=== PATIENT | female | born 1980 | race African-American/Black ===

== ENCOUNTER 2016-11-07 07:06 | Emergency (ER) | payer OTHER ==
[2016-11-07 07:24] VITALS: BP 141/56; PULSE 78; TEMP 98.1; BMI 39.1
--- NOTE | 2016-11-07 07:33 | PDOC ---
History of Present Illness - General Chief Complaint: Pain Stated Complaint: KNEE INJURY (WORK) Time Seen by Provider: 11/07/16 07:28 - History of Present Illness Initial Comments: 35 year old female with no significant PMH presenting with right knee pain for the past two weeks. She suffered a blow from a vacuum rug cleaner hand over her patella on 10/22/16 with a visit to urgent care and a negative knee x ray and a cortisone shot that created some relief. Since then she has suffered another knee injury which occurred when a child at her place of work kicked her on the patella. Since then she has had further trouble with ambulation and some tenderness behind her knee and over he patella. Overall, she is able to bear weight with some pain to the joint but able to ambulate with a slight limp. Denies fevers, chills, nausea, vomiting, chest pain, sensory deficits, or any other symptoms. 11/07/16 08:06 Past History - Past Medical History Allergies/Adverse Reactions: Allergies Allergy/AdvReac Type Severity Reaction Status Date / Time No Known Allergies Allergy Verified 11/07/16 07:24 Home Medications: Ambulatory Orders NK [No Known Home Medication] 11/14/14 Other medical history: denies - Psycho/Social/Smoking Cessation Hx Anxiety: No Suicidal Ideation: No Smoking History: Never smoked Have you smoked in the past 12 months: No Information on smoking cessation initiated: No Hx Alcohol Use: No Drug/Substance Use Hx: No Substance Use Type: None Review of Systems - Review of Systems Constitutional: No: Chills, Diaphoresis, Fever HEENTM: No: Eye Pain, Blurred Vision, Recent change in vision Respiratory: No: Cough, Shortness of Breath, SOB at Rest, Wheezing Cardiac (ROS): No: Chest Pain, Edema, Lightheadedness ABD/GI: No: Abdominal Distended, Constipated, Diarrhea, Nausea, Vomiting : No: Burning, Frequency Musculoskeletal: Yes: Joint Pain. No: Back Pain, Muscle Weakness Integumentary: No: Bruising, Lesions Neurological: No: Numbness, Paresthesia, Tingling *Physical Exam - Vital Signs Last Vital Signs Temp Pulse Resp BP Pulse Ox 98.1 F 78 18 141/56 100 11/07/16 07:10 11/07/16 07:10 11/07/16 07:10 11/07/16 07:10 11/07/16 07:10 - Physical Exam General Appearance: Yes: Nourished, Appropriately Dressed. No: Apparent Distress HEENT: positive: EOMI, JUICE, Normal Voice Neck: positive: Trachea midline, Normal Thyroid, Supple. negative: Tender, Rigid Respiratory/Chest: positive: Lungs Clear, Normal Breath Sounds. negative: Chest Tender, Respiratory Distress, Accessory Muscle Use Cardiovascular: positive: Regular Rhythm, S1, S2, Tachycardia. negative: Edema , JVD, Murmur Gastrointestinal/Abdominal: positive: Normal Bowel Sounds, Flat, Soft. negative : Tender, Organomegaly Musculoskeletal: positive: Decreased Range of Motion (decreased ROM atr right knee 5 degrees to 75 degrees), Other (Tenderness to palpation over medial aspect of right knee without swelling or efussion noted. Positive Ludwin's sign with valgus strain) Extremity: positive: Normal Capillary Refill, Normal Inspection, Tender (Per above). negative: Normal Range of Motion (Per above) Integumentary: positive: Normal Color, Dry, Warm Neurologic: positive: Fully Oriented, Alert, Normal Mood/Affect, Motor Strength 5/5 Medical Decision Making - Medical Decision Making 35 year olf healthy female with recent knee trauma. Patient able to ambulate with slight limp. Physical exam concerning for some medial soft tissue injury. Patient will need an MRI but will shoot a 3 view film set of the right knee to rule out bony pathology given new injury although suspicion very low for this at the moment. 11/07/16 08:28 11/07/16 10:07 X Ray of the knee negative for any bony pathology. Will send home with instructions on how to obtain an MRI as she needs soft tissue imaging. 11/07/16 10:19 *DC/Admit/Observation/Transfer Diagnosis at time of Disposition: Soft tissue lesion of knee region - Discharge Dispostion Disposition: HOME Condition at time of disposition: Improved Admit: No - Referrals Referrals: Mikal Lewis MD [Primary Care Provider] - Cecil Carter MD [Staff Physician] - - Patient Instructions Printed Discharge Instructions: DI for Knee Sprain Additional Instructions: Call [facility] and ask for MRI scheduling - [phone] You were seen for a knee pain that we believe is an injury of your soft tissues (ligaments, muscles, or cartilage). We did an X ray and did not see any breaks in your bones. We believe that you need an MRI of your knee and have the MRI scheduling number above. Please follow up with your orthopedic surgeon. Either the orthopaedic surgeon included on this document or the surgeons on the separate list. Please return to the ED if you have further swelling of the joint that becomes painful, redness of the joint, experience fevers, experience chills, or have any other new issues. - Attestations Physician Attestion: 11/07/16 10:40 I, Dr. Andree Ohara, attest that this document has been prepared under my direction and personally reviewed by me in its entirety. I further attest, that it accurately reflects all work, treatment, procedures and medical decision -making performed by me.
--- NOTE | 2016-11-07 07:34 | PDOC ---
Attending Attestation - Resident Resident Name: Andree Ohara - ED Attending Attestation I have performed the following: I have examined & evaluated the patient, The case was reviewed & discussed with the resident, I agree w/resident's findings & plan, Exceptions are as noted - HPI HPI: 35 yo F presents with R knee pain. 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 She has been limping ever since, having severe pain. She notes some swelling. No redness, fever, rash. - Physicial Exam PE: GENERAL: Awake, alert, and fully oriented, in no acute distress HEAD: No signs of trauma EYES: PERRLA, EOMI, sclera anicteric, conjunctiva clear ENT: Auricles normal inspection, hearing grossly normal, nares patent, oropharynx clear without exudates. Moist mucosa NECK: Normal ROM, supple, no lymphadenopathy, JVD, or masses LUNGS: Breath sounds equal, clear to auscultation bilaterally. No wheezes, and no crackles HEART: Regular rate and rhythm, normal S1 and S2, no murmurs, rubs or gallops ABDOMEN: Soft, nontender, normoactive bowel sounds. No guarding, no rebound. No masses EXTREMITIES: R knee with tenderness to anterior tibia. +Ludwin's test. +Trace effusion. Slight laxity of MCL and LCL. Remainder of extremities with normal range of motion, no edema. No clubbing or cyanosis. No cords, erythema, or tenderness NEUROLOGICAL: Cranial nerves II through XII grossly intact. Normal speech. Antalgic gait. SKIN: Warm, Dry, normal turgor, no rashes or lesions noted. - Medical Decision Making Pt with knee pain after hyperextension injury. Suspect meniscal injury. NSAIDs, immobilizer, crutches.
[2016-11-07] MEDS ORDERED: IBUPROFEN 600 MG TABLET (FP) PO ONE ×2 (08:52→08:56)
== END 2016-11-07 11:28 | disposition home or self-care (01) ==
LOC: JER 07:06
DX: S89.81XA Other specified injuries of right lower leg, initial encounter (principal); Y00.XXXA Assault by blunt object, initial encounter; Y93.F9 Activity, other caregiving; Y92.118 Other place in children's home and orphanage as the place of occurrence of the external cause; Y99.0 Civilian activity done for income or pay
CPT/HCPCS: 73562-TC-RT; 84703; 99282-25

== ENCOUNTER 2018-11-23 18:13 | Emergency (ER) | payer OTHER | END 2018-11-24 00:18 | disposition home or self-care (01) | LOC: FER 18:13 ==

== ENCOUNTER 2018-11-25 16:36 | Emergency (ER) | payer OTHER ==
--- NOTE | 2018-11-25 16:40 | PDOC ---
Rapid Medical Evaluation Time Seen by Provider: 11/25/18 16:39 Medical Evaluation: Allergies Allergy/AdvReac Type Severity Reaction Status Date / Time No Known Allergies Allergy Verified 11/23/18 18:13 11/25/18 16:39 CC: called to return for abnormal CT results PE: ventral hernia present. +BS in hernia. Orders: nothing Patient will proceed to ED for continued evaluation. 11/25/18 16:41 Discharge Disposition - Diagnosis Epigastric hernia - Referrals - Patient Instructions - Post Discharge Activity
[2018-11-25 16:43] VITALS: BP 124/69; PULSE 89; TEMP 98.1; BMI 38.7
--- NOTE | 2018-11-25 18:31 | PDOC ---
History of Present Illness - General Chief Complaint: Pain, Acute Stated Complaint: ABD PAIN Time Seen by Provider: 11/25/18 16:39 History Source: Patient, Old Records Exam Limitations: No Limitations - History of Present Illness Initial Comments: HPI: 38 y/o female presenting to [facility] ER on callback request from [employer] with concern for CT findings from [email or web address] 23 Nov 2018. Pt was evaluated at ED for epigastric pain and stomach bulge in setting of gastric sleeve placement on [address] Curtis. Symptoms have occurred intermittently over the past several weeks. CT scan at ER revealed fat-containing supraumbilical ventral hernia with mild stranding of surrounding subcutaneous fat. Radiologist unable to rule out mesenteric incarceration based on images. Dr. Curtis was made aware of findings during last visit. On arrival, the pt reports her pain has improved since discharge. Now a dull achy pain made worse with laying on her stomach. Able to tolerate PO without difficulty. No diarrhea or change in stool color. No fevers or chills. Medical Hx: - S/p Gastric Sleeve (29 Nov 2017) by Dr. Curtis Review of Systems: In addition to that documented in the HPI above, the additional ROS was obtained : Constitutional: Denies fevers or chills ENMT: Denies sore throat CV: Denies chest pain Resp: Denies SOB GI: Denies vomiting or diarrhea : Denies dysuria, hematuria, or urinary frequency Physical Examination: Constitutional: Well-developed, well-nourished adult female in no acute distress or obvious discomfort. Found sitting upright on hospital [employer] table. Alert and oriented x4. Answered all questions appropriately and completely. Speech was non-labored, non-pressured. Head: Normocephalic. No obvious external signs of trauma. Cardiovascular / Chest: Regular rate and regular rhythm. No murmur, rubs, clicks , or gallops. Peripheral pulses: radial pulses full. Respiratory: Breathing unlabored. Equal chest rise and fall. Clear to auscultation bilaterally. No stridor, no wheezing, no rhonchi. Gastrointestinal: abdomen is tender in epigastric area with grimace but no rebound or guarding. Midline hernia over epigastric area. Globally, abdomen is soft and non-distended. No pulsatile masses. No overlying skin lesions or obvious signs of trauma. Pt able to transition from laying to sitting position without assistance. Neuro: Alert and oriented. Moving all four extremities spontaneously. Gait normal. Skin: Warm, dry, and intact. : No R or L CVA tenderness. Psych: Affect: appropriate. Mood: normal. MDM: *Reviewed vital signs, nursing notes, and prior visit documentation (if available). 38 y/o female presenting for eval after [employer] call back for CT scan findings. Symptoms have improved since last ED visit. Tolerating PO. No change in bowel habits. Afebrile. Vitals unremarkable for hypotension or tachycardia. Physical exam as described above. CBC unremarkable for leukocytosis. Lactic acid not elevated. Suspect likely fat containing hernia. Low suspicion for mesenteric incarceration. Telephone discussion with Dr. Curtis. Verbally appraised of the pts HPI, ED course, and current plan of management. Also discussed the results of CT scan. Acknowledged he was already aware of the findings and would like the pt to f/u in clinic. Discussed imaging and laboratory results with pt. Answered all questions. Provided return precautions. Pt expressed verbal understanding and agreement with plan to discharge home with outpatient follow up. Johnny Ashby M.D., PGY2 Emergency Medicine Resident Past History - Past Medical History Allergies/Adverse Reactions: Allergies Allergy/AdvReac Type Severity Reaction Status Date / Time No Known Allergies Allergy Verified 11/25/18 16:43 Home Medications: Ambulatory Orders Ondansetron [Zofran *Odt*] 4 mg SL BID PRN #10 od.tablet 11/24/18 Oxycodone HCl/Acetaminophen [Percocet 5-325 mg Tablet] 1 tab PO Q6H PRN #12 tablet MDD 4 tabs 11/24/18 COPD: No - Surgical History Abdominal Surgery: Yes (GASTRIC SLEEVE) - Suicide/Smoking/Psychosocial Hx Smoking History: Never smoked Have you smoked in the past 12 months: No Hx Alcohol Use: Yes Drug/Substance Use Hx: No Substance Use Type: None *Physical Exam - Vital Signs Last Vital Signs Temp Pulse Resp BP Pulse Ox 98.1 F 89 16 124/69 97 11/25/18 16:40 11/25/18 16:40 11/25/18 16:40 11/25/18 16:40 11/25/18 16:40 ED Treatment Course - LABORATORY CBC & Chemistry Diagram: 11/25/18 18:07 *DC/Admit/Observation/Transfer Diagnosis at time of Disposition: Epigastric hernia - Discharge Dispostion Disposition: HOME Condition at time of disposition: Good Decision to Admit order: No - Referrals Referrals: Mikal Lewis RES [Primary Care Provider] - Malik Curtis MD [Staff Physician] - Call tomorrow - Patient Instructions Printed Discharge Instructions: DI for Ventral Hernia Additional Instructions: You were seen today for examination based on your CT scan results from your [facility] ED visit two days ago. Your repeat blood work was normal today. I called and discussed the case with your surgeon, who was already aware of the CT findings. You can take over the counter Tylenol or Advil as needed for pain. Take as directed on the package insert. Do not exceed the recommended dosage. Follow up with your surgeon, Dr. Curtis. You will need to call to make an appointment tomorrow morning. The number is included in this packet. A copy of todays results are attached to this packet. Take it to the appointment so your doctor can review them. Go to the nearest emergency department if your condition worsens or you feel like you need additional emergency evaluation. Print Language: KYRGYZ - Post Discharge Activity Forms/Work/School Notes: Back to Work
[2018-11-25 18:41] LABS: BASO % 0.9 % (0-2.0); EOS % 3.5 % (0-4.5); HEMATOCRIT 36.5 % (32.4-45.2); HEMOGLOBIN 12.4 GM/dL (10.7-15.3); LYMPH % 33.7 % (8-40); MCH 35.8 pg (25.7-33.7); MCHC 34.1 g/dl (32.0-36.0); MEAN CELL VOLUME 104.7 fl (80-96); MEAN PLT VOLUME 7.6 fl (7.5-11.1); MONO % 7.1 % (3.8-10.2); NEUT % 54.8 % (42.8-82.8); PLATELET COUNT 247 K/MM3 (134-434); RBC 3.48 M/mm3 (3.60-5.2); RDW 13.4 % (11.6-15.6); WHITE BLOOD COUNT 5.4 K/mm3 (4.0-10.0)
--- NOTE | 2018-11-25 19:42 | PDOC ---
Documentation entered by Yuli Patterson SCRIBE, acting as scribe for Yasmine Bryson DO. Yasmine Bryson DO: This documentation has been prepared by the Leonardo garvin Adrianna, SCRIBE, under my direction and personally reviewed by me in its entirety. I confirm that the documentation accurately reflects all work, treatment, procedures, and medical decision making performed by me. Attending Attestation - Resident Resident Name: AshbyJohnny - ED Attending Attestation I have performed the following: I have examined & evaluated the patient, The case was reviewed & discussed with the resident, I agree w/resident's findings & plan - HPI HPI: The patient is a 38 year old female, with a significant PMH of gastric sleeve ( done one year ago), who presents to the ED for evaluation of abdominal pain for 3 days. Patient was seen in the ED 2 days ago for abdominal pain, and was called back for abnormal CT with possible mesenteric containing hernia. Allergies:NKA, NKDA Surgical History: Gastric sleeve Social History: Denies EtOH, tobacco, or illicit drug use PCP: Dr. Lewis - Physicial Exam PE: Agree with resident exam. - Medical Decision Making 38 year old female called back for abnormal CT findings. CT result previously reviewed with patient's surgeon, who was again contacted edward and will follow up with patient in office. Patient has mild persistent pain, plan for repeat CBC and lactic acid level. If normal, discharge home. If abnormal, contact surgery for final dispo.
== END 2018-11-25 19:20 | disposition home or self-care (01) ==
LOC: JER 16:36
DX: K43.9 Ventral hernia without obstruction or gangrene (principal); Z98.84 Bariatric surgery status
CPT/HCPCS: 36415; 83605; 85025; 99282-25

== ENCOUNTER 2018-12-03 08:16 | Day surgery (SDC) | payer OTHER ==
[2018-12-03] MEDS ORDERED: SODIUM CHLORIDE 1,000 ML IV ONE (08:19)
[2018-12-03] MEDS ORDERED: ONDANSETRON 4 MG/2 ML VIAL IVPB ONE (08:19)
[2018-12-03 08:32] VITALS: BMI 39.0
[2018-12-03] MEDS ORDERED: morphine CARPU-JECT 4 MG/1 ML DISP.SYRIN IVPUSH ONE (08:44)
[2018-12-03] MEDS ORDERED: morphine SULFATE 4 MG/ML VIAL ONE (08:47)
[2018-12-03] MEDS ORDERED: ONDANSETRON 4 MG/2 ML VIAL ONE ×2 (08:47→14:52)
--- NOTE | 2018-12-03 09:00 | PDOC ---
History of Present Illness - General Chief Complaint: Pain Stated Complaint: ABD PAIN Time Seen by Provider: 12/03/18 08:19 History Source: Patient, Old Records Exam Limitations: No Limitations - History of Present Illness Initial Comments: 12/03/18 08:51 38y/o healthy female with psh of gastric sleeve 11/2017 presents with increased acute on subacute abdominal pain. Pt sxs began about one month ago after she forcefully sneezed and felt a sudden hernia like swelling in her epigastric region. Since then, has had mild intermittent discomfort without complicating sxs. On 11/23, sneezed again and had sudden increase in her pain/swelling - seen at [facility] that day where labs were normal but CT showed ventral/periumbilical mesentery containing hernia. Case was discussed with her surgeon, Dr. Curtis, and pt d/c to outpt f/u. Returned briefly to [facility] 11/25 after radiology callback but no change in plan. Since then, patient has had persistent discomfort to the supraumbilical/ epigastric region, constant but mild. She had seen Dr. Curtis on 11/26, and plan was to the likely require elective operative repair of ventral hernia defect. Patient was in this state until last night, when she felt a sudden sharp increase in her epigastric pain with subsequent nausea/vomiting of previous meal and then yellow, nonbloody liquid. The pain persisted at this high level for a couple of hours and then resolved back to mild, but has been persistent since then. Notably, since then, patient has had no appetite and no oral intake , and has noticed decreased flatulence and no bowel movements. No fevers or chills, no urinary complaints, no cardiopulmonary complaints, no known history of obstruction. Patient was previously prescribed Percocet and Zofran, has used it sparingly, with minimal to no relief. Past History - Past Medical History Allergies/Adverse Reactions: Allergies Allergy/AdvReac Type Severity Reaction Status Date / Time ethinyl estradiol Allergy Mild Difficulty Verified 12/03/18 12:57 [From Seasonale ()] Breathing levonorgestrel Allergy Mild Difficulty Verified 12/03/18 12:57 [From Seasonale (91)] Breathing Home Medications: Ambulatory Orders Ondansetron [Zofran *Odt*] 4 mg SL BID PRN #10 od.tablet 11/24/18 Oxycodone HCl/Acetaminophen [Percocet 5-325 mg Tablet] 1 tab PO Q6H PRN #12 tablet MDD 4 tabs 11/24/18 COPD: No - Surgical History Abdominal Surgery: Yes (GASTRIC SLEEVE) - Suicide/Smoking/Psychosocial Hx Smoking History: Never smoked Have you smoked in the past 12 months: No Information on smoking cessation initiated: No Hx Alcohol Use: Yes ([employer]) Drug/Substance Use Hx: No Substance Use Type: None Review of Systems - Review of Systems Constitutional: No: Chills, Fever Respiratory: No: Cough, Shortness of Breath Cardiac (ROS): No: Chest Pain ABD/GI: Yes: See HPI : No: Symptoms Reported Musculoskeletal: Yes: Back Pain (low back pain for about 1 week without motor/ sensory deficit). No: Muscle Weakness Neurological: No: Paresthesia, Tingling, Weakness, Ataxia All Other Systems: Reviewed and Negative *Physical Exam - Vital Signs Last Vital Signs Temp Pulse Resp BP Pulse Ox 98.9 F 79 20 120/81 99 12/03/18 08:16 12/03/18 08:16 12/03/18 08:16 12/03/18 08:16 12/03/18 08:16 - Physical Exam Comments: 12/03/18 09:00 Vitals as noted, afebrile GENERAL: The patient is awake, alert, and fully oriented, in no acute distress. Obese, lying comfortably in stretcher. HEAD: Normal with no signs of trauma. EYES: PERRL, EOMI, sclera anicteric, conjunctiva clear with no pallor. ENT: oropharynx clear without exudates. Slightly dry mucous membranes. NECK: Normal range of motion, supple without lymphadenopathy, JVD, or masses. LUNGS: Breath sounds equal, clear to auscultation bilaterally. No wheeze/ crackles. HEART: Regular rate and rhythm, normal S1 and S2 without murmur or rub. ABDOMEN: Soft/nondistended. BS wnl. Palpable tender hernia in supraumbilical region above incisional lap site, hernia reduced with constant gentle pressure. Slight guarding in the region of the hernia, no rebound. No palpable masses. No hepatosplenomegaly. EXTREMITIES: Normal range of motion, no edema. 2+ distal pulses. No cords, erythema, or tenderness. No midline spine ttp. NEUROLOGICAL: Cranial nerves II through XII grossly intact. Normal speech, normal gait, 5/5 flex/extend of b/l hips/knees/ankles/toes. PSYCH: Normal mood, normal affect. SKIN: Warm, Dry, no rashes or lesions noted. Heart Score/ECG Review #1 ECG reviewed & interpreted by me at: 08:50 General ECG Interpretation: Sinus Rhythm, Normal Rate (65), Normal Intervals ( qtc 407), No acute ischemic changes ED Treatment Course - LABORATORY CBC & Chemistry Diagram: 12/03/18 08:58 12/03/18 08:58 - RADIOLOGY Radiology Studies Ordered: Category Date Time Status ABDOMEN & PELVIS CT WITH CONTR [CT] Stat CT Scan 12/03/18 08:44 Ordered Medical Decision Making - Medical Decision Making 12/03/18 09:19 38-year-old female with history of laparoscopic gastric sleeve one year ago and recently diagnosed ventral hernia presents now with worsening pain and findings more concerning for incarcerated hernia with possible partial small bowel obstruction. Vital signs are stable, not septic appearing. Labs, urinalysis EKG IV fluid rehydration, antiemetics, pain control CT of the abdomen and pelvis to evaluate progression of hernia and status of bowel Will discuss case with patient's surgeon, Dr. Curtis Reassess 12/03/18 09:59 labs normal: no leukocytosis, BUN/Cr normal, UA clear. Feels better after meds/ fluids. Call placed to Dr. Curtis, awaiting callback. Pending CTAP. 12/03/18 11:[address] Curtis and Dr. Parish Lewis. Given obstructive sxs and ongoing hernia complaints, will admit for OR reduction and hernia repair. Admission to Dr. Curtis, Dr. Lewis will follow. Pt aware, awaiting official CT read but pt more comfortable at this time. 12/03/18 13:31 CTAP with persistent mesenteric hernia, no obstruction. Pt admitted, Dr. Curtis here to evaluate. Plan for OR repair. *DC/Admit/Observation/Transfer Diagnosis at time of Disposition: Epigastric hernia, Incarcerated hernia - Discharge Dispostion Condition at time of disposition: Fair - Referrals - Patient Instructions - Post Discharge Activity
[2018-12-03 09:27] LABS: BASO % 0.5 % (0-2.0); EOS % 5.7 % (0-4.5); HEMATOCRIT 36.4 % (32.4-45.2); HEMOGLOBIN 12.3 GM/dl (10.7-15.3); LYMPH % 32.2 % (8-40); MCH 35.5 pg (25.7-33.7); MCHC 33.8 g/dl (32.0-36.0); MEAN CELL VOLUME 105.1 fl (80-96); MEAN PLT VOLUME 7.8 fl (7.5-11.1); MONO % 9.4 % (3.8-10.2); NEUT % 52.2 % (42.8-82.8); PLATELET COUNT 235 K/MM3 (134-434); RBC 3.47 M/mm3 (3.60-5.2); WHITE BLOOD COUNT 4.3 K/mm3 (4.0-10.8)
[2018-12-03 09:35] LABS: ALBUMIN 3.3 g/dl (3.4-5.0); BILIRUBIN,TOTAL 0.6 mg/dl (0.2-1); CALCIUM 8.6 mg/dl (8.5-10); CREATININE 0.8 mg/dl (0.55-1.3); MAGNESIUM 1.7 mg/dL (1.8-2.4); POTASSIUM 3.7 mmol/L (3.5-5.1); TOT PROT 6.6 g/dl (6.4-8.2)
[2018-12-03 09:36] LABS: INR 1.14 (0.82-1.09); PROTHROMBIN TIME (PATIENT) 12.7 SEC (10.2-13.0)
[2018-12-03 09:50] LABS: EPITHELIAL CELLS MODERATE /hpf
[2018-12-03] MEDS ORDERED: LIDO 2%/EPI 1:200000 PRESRVFRE (20 ML SDVIAL) ONE (10:42)
[2018-12-03] MEDS ORDERED: DIPHTH,PERTUSS(ACELL),TET 0.5 ML DISP.SYRIN IM ONE (10:42)
[2018-12-03] MEDS ORDERED: SODIUM CHLORIDE 1,000 ML IV STA (11:56)
[2018-12-03] MEDS ORDERED: fentaNYL CITRATE 250 MCG/5 ML VIAL ONE (13:50)
[2018-12-03] MEDS ORDERED: PROPOFOL 20 ML ONE ×2 (13:50→14:58)
[2018-12-03] MEDS ORDERED: SUCCINYLCHOLINE CHLORIDE 200 MG/10 ML SYRINGE ONE (13:50)
[2018-12-03] MEDS ORDERED: ceFAZolin SODIUM 1 GM VIAL ONE (14:09)
[2018-12-03] MEDS ORDERED: ROCURONIUM BROMIDE 50 MG/5 ML VIAL ONE (14:16)
--- NOTE | 2018-12-03 14:40 | HP ---
DATE OF ADMISSION: 12/03/2018 CHIEF COMPLAINT: Abdominal pain. HISTORY OF PRESENT ILLNESS: This is a 38-year-old woman with a history of gastric sleeve approximately 1 year ago. Patient started having pain in the supraumbilical area by one of the trocar sites approximately 3 weeks ago. She came to the emergency room approximately 10 days ago, where a CT scan showed a small hernia in the midline in the supraumbilical position, containing some mesenteric fat. The patient was sent home on pain medicine and she has had some difficulty at home, mostly with intermittent abdominal pain. She states she had had recently an episode of vomiting and the bowel movements have changed to where they are very minimal. The patient comes to the emergency room now complaining of significant pain from the apparent hernia. Past medical history is noncontributory. She takes no medications. The patient has no allergies. REVIEW OF SYMPTOMS: Respiratory: Within normal limits. Cardiovascular: Within normal limits. Gastrointestinal: Midline abdominal pain just above the umbilicus. Occasional vomiting noted. Extremities: Within normal limits. Musculoskeletal: Within normal limits. PHYSICAL EXAMINATION: General: A 38-year-old woman, awake, alert, in mild to moderate distress secondary to abdominal pain above the umbilicus. HEENT: No masses palpated. Lungs: Clear bilaterally. Heart: Regular sinus rhythm. Abdomen: Positive for obesity, soft, tender on palpation above the umbilicus approximately 3 to 4 cm. Questionable hernia content palpated. No signs of guarding and no rebound tenderness noted. Extremities: No swelling noted. IMPRESSION: Supraumbilical ventral hernia. PLAN: OR for repair of ventral hernia. Dasia [id number]
[2018-12-03] MEDS ORDERED: DEXAMETHASONE SOD PHOSPHATE 4 MG/1 ML VIAL ONE (14:52)
[2018-12-03] MEDS ORDERED: NEOSTIGMINE METHYLSULFATE 0.5 MG/ML - 10 ML MDV ONE (14:55)
[2018-12-03] MEDS ORDERED: BUPIVACAINE HCL/PF 2.5 MG/ML - 30 ML VIAL IJ ONE (14:57)
[2018-12-03] MEDS ORDERED: BUPIVACAINE HCL/PF 0.25% (2.5MG/ML) 10 ML VIAL IJ ONE (15:05)
--- NOTE | 2018-12-03 15:13 | EKG ---
Test Reason : Blood Pressure : / mmHG Vent. Rate : 065 BPM Atrial Rate : 065 BPM P-R Int : 164 ms QRS Dur : 080 ms QT Int : 392 ms P-R-T Axes : 039 046 035 degrees QTc Int : 407 ms NORMAL SINUS RHYTHM NORMAL ECG WHEN COMPARED WITH ECG OF 18-OCT-2017 12:57, NO SIGNIFICANT CHANGE WAS FOUND Confirmed by Allen Calderón ([id number]) on 12/03/2018 3:13:40 PM Referred By: VIANNEY ARNETT Confirmed By:Allen Calderón
[2018-12-03] MEDS ORDERED: ACETAMINOPHEN 325 MG TABLET (FP) PO PRN (15:21)
[2018-12-03] MEDS ORDERED: oxyCODONE HCL 5 MG TABLET PO PRN (15:21)
--- NOTE | 2018-12-03 15:28 | OP ---
Operative Note - Note: Operative Date: 12/03/18 Pre-Operative Diagnosis: Incarcerated Ventral Hernia. Abdominal Pain Operation: Laparoscopic Ventral Hernia Repair. Partial Omentectomy Findings: Approximately 4 cm hernia found in midline 5 cm above umbilicus from previous trocar site. Omentum amputated and removed with hernia sac. Post-Operative Diagnosis: Same as Pre-op Surgeon: Malik Curtis Executive Pastry Chef: Shila Coker Anesthesia: General Specimens Removed: Omentum and hernia sac Estimated Blood Loss (mls): 30 Operative Report Dictated: Yes
[2018-12-03] MEDS: ONDANSETRON 4 MG/2 ML VIAL IVPUSH PRN (15:32)
[2018-12-03] MEDS ORDERED: KETOROLAC TROMETHAMINE 30 MG/1 ML VIAL ONE (15:41)
[2018-12-03] MEDS ORDERED: morphine CARPU-JECT 2 MG/1 ML DISP.SYRIN IVPUSH PRN (15:42)
[2018-12-03] MEDS ORDERED: ONDANSETRON 4 MG/2 ML VIAL IVPUSH PRN (15:42)
--- NOTE | 2018-12-03 15:58 | SURG ---
Surgery Upsetting Machine Operator Note Upsetting Machine Operator: Shila Coker PA-C Date of Service: 12/03/18 Diagnosis: Incarcerated Ventral Hernia. Abdominal Pain Procedure: Incarcerated Ventral Hernia. Abdominal Pain I was present for the entirety of the operative procedure. For further detail, please refer to operative report. Visit type - Case Type Case Type: ED Admission - Emergency Emergency Visit: Yes Care time: The patient presented to the Emergency Department on the above date and was hospitalized for further evaluation of their emergent condition. - New patient This patient is new to me today: Yes Date on this admission: 12/03/18
[2018-12-03] MEDS ORDERED: HYDROmorphone HCL 0.5 MG/0.5 ML SYRINGE ONE (16:33)
[2018-12-03] MEDS ORDERED: ACETAMINOPHEN 325 MG TABLET (FP) ONE (16:46)
[2018-12-03] MEDS ORDERED: oxyCODONE HCL 5 MG TABLET ONE (16:46)
[2018-12-03] MEDS ORDERED: HYDROmorphone HCL CARPU-JECT 1 MG/1 ML DISP.SYRIN IVPB PRN (16:47)
[2018-12-03] MEDS ORDERED: ACETAMINOPHEN 325 MG TABLET (FP) PO ONE (16:55)
[2018-12-03] MEDS: SODIUM CHLORIDE 1,000 ML IV SCH (17:00)
--- NOTE | 2018-12-03 19:51 | OP ---
DATE OF OPERATION: 12/03/2018 PREOPERATIVE DIAGNOSES: 1. Incarcerated abdominal ventral wall hernia. 2. Abdominal pain. POSTOPERATIVE DIAGNOSES: 1. Incarcerated abdominal ventral wall hernia. 2. Abdominal pain. 3. Incarcerated omentum. PROCEDURE PERFORMED: 1. Laparoscopic repair of incarcerated ventral hernia. 2. Partial omentectomy. 3. Diagnostic laparoscopy. OPERATING SURGEON: Marysol Samuel MD WELL TESTING OPERATOR: CELESTINO Rolle ANESTHESIA: General. OPERATIVE PROCEDURE: The patient was brought in to the operating room, placed on the OR table in the supine position. All precautions were taken initially including padding for the back and Venodyne boots were placed on both lower extremities. At that point the abdomen was prepped and draped in the usual manner. A Veress needle was placed in the left upper quadrant near the patient's previous left upper quadrant incision, and a pneumoperitoneum was then established. Using the [employer], the camera was used through a number 5 trocar placed directly under vision into the left upper quadrant. The camera was then placed in the abdominal cavity, and under direct vision, a number 5 bladeless trocar was placed more laterally and slightly superior in the patient's previous trocar site. Using the more lateral one for camera site, attention was directed to the abdomen. There was an incarcerated hernia, however, during the anesthesia and as the patient relaxed, it was able to be reduced back into the abdominal cavity prior to the laparoscopy being placed. There were signs that part of the falciform ligament was incarcerated into the ventral wall hernia in the midline. Because 2 working ports were needed, a number 5 bladeless trocar was placed just to the left of the umbilicus and slightly below it. Using the 2 more medial trocars as a working port, the electrocautery was used to dissect the falciform ligament off of the hernia sac, and this continued until the full hernia, which was about 2 to 2.5 cm around and circular, was in full view. At this point, into the hernia sac, the laparoscopic instruments were placed and used to reduce the fat contents from the hernia sac that were there. Once these were pulled into the abdominal cavity, the electrocautery was used to dissect the fat and the adhesions off of the hernia sac, and then the hernia sac also was dissected until basically all subcutaneous contents were free in the hernia sac. The partial omentum that was dissected off was now removed from the number 5 trocar site and placed as a specimen to Pathology. Also the hernia sac was removed and sent to Pathology as a specimen. Attention was now directed to the repair of the hernia. Because it was only about 2 to 2.5 cm, it was decided that a primary repair could be performed. The Donato-Frederick endo-closure device was used to place 3 0 Vicryl sutures all in a row from superior to inferior and these were then placed through the hernia. When they were lifted up, you could see that the hernia was able to be reduced completely. At this point, prior to tying them off, because the number 5 trocar that was just to the left of the umbilicus was dissected wider in order to remove the omentum and the hernia sac, the Donato-Frederick was used to place 1 suture through the number 5 trocar and this was tied off successfully. At this point, the pneumoperitoneum was released down to a pressure of between 8 and 10. The 3 sutures closing the ventral hernia were now placed, and when it was completed, when they were tied, the hernia was now completely removed. Under direct vision now, all trocars were removed and pneumoperitoneum was released. All trocar sites then received 0.25% Marcaine. The midline site was closed with 2-0 Vicryl on the subcutaneous tissue, then all trocars were closed with 4-0 Biosyn in subcuticular fashion. Dressings were applied. Patient awoken from anesthesia and transferred out of the operating room to the recovery room in stable condition. Anesthesia in the case was general. Surgeon, Dr. Samuel. [employer], Shila Coker, physician's news assistant. Expected blood loss was 30 mL. Patient transferred to recovery room in stable condition. MARYSOL SAMUEL M.D. [id number]
[2018-12-03] MEDS: FAMOTIDINE 20 MG/50 ML IVPB 20 MG/50 ML MG IVPB SCH (21:23)
[2018-12-04] MEDS: FAMOTIDINE 20 MG/50 ML IVPB 20 MG/50 ML MG IVPB SCH ×2 (09:10→21:20)
[2018-12-04] MEDS: ONDANSETRON 4 MG/2 ML VIAL IVPUSH PRN ×2 (09:10→17:44)
[2018-12-04] MEDS: SODIUM CHLORIDE 1,000 ML IV SCH (17:30)
[2018-12-05] MEDS: FAMOTIDINE 20 MG/50 ML IVPB 20 MG/50 ML MG IVPB SCH (09:36)
--- NOTE | 2018-12-05 14:09 | PN ---
Progress Note (short form) - Note Progress Note: POD#2 Afebrile;VSS Pt doing better Less abdominal pain than previously Tolerating regular diet P/E-Abd- binder in place no leakage from trocar sites soft, mild tenderness over midline hernia repair on palpation Ext- no swelling, no edema P- D/C home Continue abdominal binder for 1 week F/U in office in 1 week
[2018-12-05 14:24] VITALS: BP 138/85; PULSE 78; TEMP 98.3
--- NOTE | 2018-12-12 15:09 | PATH ---
Surgical Pathology Report Patient Name: MARICRUZ MCGOVERN Med. Rec. #: [id number] /Age/Gender: 1980 (Age: 38) / F Account: [id number] Location: [facility] Taken: 12/03/2018 Received: 12/03/2018 Reported: 12/12/2018 Physicians: Malik Curtis M.D. Specimen(s) Received OMENTUM AND HERNIA SAC Clinical History Ventral hernia Final Diagnosis HERNIA SAC AND OMENTUM, REPAIR: HERNIA SAC AND OMENTUM. Electronically Signed Zelda Azar M.D. Gross Description Received in formalin, labeled "omentum and hernia sac" is a 6.5 x 4 x 1.0 cm portion of adipose tissue and fibromembranous tissue. Gre Tutor sections are submitted in one cassette. AE/12/06/2018 ebram/12/06/2018
== END 2018-12-05 17:35 | disposition home or self-care (01) ==
LOC: FER 08:16 → FASUSAT 11:15 → FM/S 11:15 → FASUSAT 11:52 → FM/S 12-04 18:02 → FASUSAT 12-05 17:35
PROVIDERS: ATTEND Surgery
PROC: 0DBU4ZZ Excision of Omentum, Percutaneous Endoscopic Approach (ICD-10-PCS; 2018-12-03)
PROC: 0WQF4ZZ Repair Abdominal Wall, Percutaneous Endoscopic Approach (ICD-10-PCS; principal; 2018-12-03 14:17)
DX: K43.6 Other and unspecified ventral hernia with obstruction, without gangrene (principal)
CPT/HCPCS: 36415; 74177-TC; 80053; 81003; 81015; 83690; 83735; 84703; 85025; 85610; 86850; 86900; 86901; 88302-TC; 93005; 94760; 99283-25; J7030

== ENCOUNTER 2019-06-11 08:54 | Emergency (ER) | payer OTHER ==
[2019-06-11 09:01] VITALS: BMI 38.9
[2019-06-11] MEDS ORDERED: SODIUM CHLORIDE 1,000 ML IV STA (09:41)
[2019-06-11] MEDS ORDERED: KETOROLAC TROMETHAMINE 15 MG/ML VIAL IVPUSH ONE ×2 (09:41→14:02)
[2019-06-11] MEDS ORDERED: ACETAMINOPHEN 500 MG TABLET (FP) PO ONE (09:42)
[2019-06-11] MEDS ORDERED: PSEUDOEPHEDRINE HCL 30 MG TABLET PO ONE (09:42)
[2019-06-11] MEDS ORDERED: KETOROLAC TROMETHAMINE 15 MG/ML VIAL ONE ×2 (10:00→15:17)
[2019-06-11] MEDS ORDERED: ACETAMINOPHEN 325 MG TABLET (FP) ONE ×2 (10:00→10:26)
[2019-06-11] MEDS ORDERED: PSEUDOEPHEDRINE HCL 60 MG TABLET ONE (10:00)
--- NOTE | 2019-06-11 10:12 | PDOC ---
Documentation entered by Jeffrey Faith SCRIBE, acting as scribe for Elba Borrego MD. Elba Borrego MD: This documentation has been prepared by the Marcell garvin Elijah, SCRIBE, under my direction and personally reviewed by me in its entirety. I confirm that the documentation accurately reflects all work, treatment, procedures, and medical decision making performed by me. History of Present Illness - General Chief Complaint: Pain Stated Complaint: SENT BY DOC History Source: Patient Exam Limitations: No Limitations - History of Present Illness Initial Comments: 06/11/19 09:45 The patient is a 38 year old female with a significant past medical history of gastric sleeve 11/2017 and hernia repair 10/2018 who presents today with abdominal pain. Patient reports that this abdominal pain began in March, has been progressively worsening and noted a dry cough over the course of the last few weeks which prompted her visit to the ER today. Patient notes the pain is worse when she coughs, associates minimally decreased appetite and was told by her surgeon to have a CT Scan if pain returns but she has not had it as of yet. Denies Fever, Recent Travel , Runny Nose or Headache Allergies:Ethinyl Estradiol and Levnorgestrel Past surgical history: As noted in HPI Past History - Past Medical History Allergies/Adverse Reactions: Allergies Allergy/AdvReac Type Severity Reaction Status Date / Time ethinyl estradiol Allergy Mild Difficulty Verified 06/11/19 09:01 [From Seasonale (91)] Breathing levonorgestrel Allergy Mild Difficulty Verified 06/11/19 09:01 [From Seasonale (91)] Breathing Home Medications: Ambulatory Orders Oxycodone HCl/Acetaminophen [Percocet 5-325 mg Tablet] 1 tab PO Q6H PRN #10 tablet MDD 4 06/11/19 Anemia: No Asthma: No Cancer: No Cardiac Disorders: No CVA: No COPD: No CHF: No Dementia: No Diabetes: No GI Disorders: No Disorders: No HTN: No Hypercholesterolemia: No Liver Disease: No Seizures: No Thyroid Disease: No - Surgical History Abdominal Surgery: Yes (GASTRIC SLEEVE) Appendectomy: No Cardiac Surgery: No Cholecystectomy: No GI Surgery: (HERNIA REPAIR) Lung Surgery: No Neurologic Surgery: No Orthopedic Surgery: No - Psycho Social/Smoking Cessation Hx Smoking History: Never smoked Have you smoked in the past 12 months: No Information on smoking cessation initiated: No Hx Alcohol Use: No Drug/Substance Use Hx: No Substance Use Type: None Hx Substance Use Treatment: No Review of Systems - Review of Systems Comments:: 06/11/19 09:46 GENERAL/CONSTITUTIONAL: No fever or chills. No weakness. HEAD, EYES, EARS, NOSE AND THROAT: No change in vision. No ear pain or discharge. No sore throat. CARDIOVASCULAR: No chest pain or shortness of breath. RESPIRATORY: +cough No wheezing, or hemoptysis. GASTROINTESTINAL:+Abdominal Pain. No nausea, vomiting, diarrhea or constipation. GENITOURINARY: No dysuria, frequency, or change in urination. MUSCULOSKELETAL: No joint or muscle swelling or pain. No neck or back pain. SKIN: No rash NEUROLOGIC: No headache, vertigo, loss of consciousness, or change in strength/ sensation. ENDOCRINE: No increased thirst. No abnormal weight change. HEMATOLOGIC/LYMPHATIC: No anemia, easy bleeding, or history of blood clots. ALLERGIC/IMMUNOLOGIC: No hives or skin allergy. *Physical Exam - Vital Signs Last Vital Signs Temp Pulse Resp BP Pulse Ox 98.4 F 85 18 143/64 99 06/11/19 08:58 06/11/19 08:58 06/11/19 08:58 06/11/19 08:58 06/11/19 08:58 - Physical Exam 06/11/19 09:47 GENERAL: Awake, alert, and fully oriented, in no acute distress HEAD: No signs of trauma EYES: PERRLA, EOMI, sclera anicteric, conjunctiva clear ENT: Auricles normal inspection, hearing grossly normal, nares patent, oropharynx clear without exudates. Moist mucosa NECK: Normal ROM, supple, no lymphadenopathy, JVD, or masses LUNGS: Breath sounds equal, clear to auscultation bilaterally. No wheezes, and no crackles HEART: Regular rate and rhythm, normal S1 and S2, no murmurs, rubs or gallops ABDOMEN: +Palpable 'ball' in Abdomen that is Reproducible EXTREMITIES: Normal range of motion, no edema. No clubbing or cyanosis. No cords, erythema, or tenderness NEUROLOGICAL: Cranial nerves II through XII grossly intact. Normal speech, normal gait SKIN: Warm, Dry, normal turgor, no rashes or lesions noted. ED Treatment Course - LABORATORY CBC & Chemistry Diagram: 06/11/19 09:33 06/11/19 09:33 - RADIOLOGY Radiology Studies Ordered: Category Date Time Status ABDOMEN & PELVIS CT WITH CONTR [CT] Stat CT Scan 06/11/19 09:41 Ordered CHEST PA & LAT [RAD] Stat Radiology 06/11/19 09:41 Ordered Medical Decision Making - Medical Decision Making 06/11/19 10:08 38yoF hx of prior midline abd hernia s/p repair without mesh presents w/ <>4 months of progressive recurrent hernia pain, NC w/ outpatient f/u instructions. Now presents w/ increasing pain, new palpable mass in setting of URI and cough over past few days. Palpable mass, painful, difficult to determine +/- reducible on examination 2/2 body habitus and pain. - labs - CTAP - sxs control - screen for travel is negative. - reeval and dispo per results. 06/11/19 14:19 Pt is tolerating PO in the ED. CTAP w/ concern for "partial inceration" of small bowel in hernia defect. slight msenteric inflammation. Case discussed w/ Dr. Curtis's service for recomnedations for further management. 06/11/19 16:38 Case discussed w/ Dr. Curtis. Cleared for DC as pt is tolerating PO. Will see her in the office tomorrow and likely to OR next week. Discharge - Discharge Information Problems reviewed: Yes Clinical Impression/Diagnosis: Epigastric hernia Condition: Good Disposition: HOME - Additional Discharge Information Prescriptions: Oxycodone HCl/Acetaminophen [Percocet 5-325 mg Tablet] 1 tab PO Q6H PRN #10 tablet MDD 4 PRN Reason: Pain Prescription Drug Monitoring Program (I-STOP) results: I-STOP not reviewed - Follow up/Referral - Patient Discharge Instructions Additional Instructions: Please call Dr. Curtis's office today or tomorrow morning to schedule an appointment for tomorrow. He will evaluate you and might perform surgery next week. prescriptions have been sent to your pharmacy for pain control. eat a regular diet. return to the ER for: severe vomiting, unable to tolerate food or drink severe increase in abdominal pain - Post Discharge Activity Work/Back to School Note: Back to Work
[2019-06-11 10:18] LABS: BASO % 0.7 % (0-2.0); EOS % 3.2 % (0-4.5); HEMATOCRIT 37.6 % (32.4-45.2); HEMOGLOBIN 12.8 GM/dL (10.7-15.3); LYMPH % 21.6 % (8-40); MCH 35.8 pg (25.7-33.7); MEAN CELL VOLUME 105.3 fl (80-96); MEAN PLT VOLUME 7.7 fl (7.5-11.1); MONO % 8.9 % (3.8-10.2); NEUT % 65.6 % (42.8-82.8); PLATELET COUNT 254 K/MM3 (134-434); RBC 3.56 M/mm3 (3.60-5.2); RDW 13.8 % (11.6-15.6)
[2019-06-11 10:44] LABS: ALBUMIN 3.5 g/dl (3.4-5.0); BILIRUBIN,TOTAL 0.5 mg/dL (0.2-1); BLOOD UREA NITROGEN 11.2 mg/dL (7-18); CALCIUM 9.3 mg/dL (8.5-10.1); CREATININE 0.9 mg/dL (0.55-1.3); POTASSIUM 4.1 mmol/L (3.5-5.1); TOT PROT 7.4 g/dl (6.4-8.2)
[2019-06-11 11:00] LABS: MACROCYTOSIS 2+
[2019-06-11 17:52] VITALS: BP 142/75; PULSE 92; TEMP 98.1
== END 2019-06-11 17:30 | disposition home or self-care (01) ==
LOC: JER 08:54
PROC: 3E0333Z Introduction of Anti-inflammatory into Peripheral Vein, Percutaneous Approach (ICD-10-PCS; principal; 2019-06-11)
DX: K43.9 Ventral hernia without obstruction or gangrene (principal); Z88.8 Allergy status to other drugs, medicaments and biological substances; Z98.84 Bariatric surgery status
CPT/HCPCS: 36415; 71046-TC-FY; 74177-TC; 80053; 84703; 85025; 99285-25; J7030; Q9967

== ENCOUNTER 2019-06-16 08:50 | Inpatient (IN) | payer OTHER ==
[2019-06-16 08:56] VITALS: BMI 38.7
[2019-06-16 09:37] LABS: ACTIVATED PTT 28.1 SECONDS (25.2-36.5)
[2019-06-16 09:41] LABS: INR 1.16 (0.82-1.09); PROTHROMBIN TIME (PATIENT) 12.9 SEC (10.2-13.0)
--- NOTE | 2019-06-16 10:15 | PDOC ---
History of Present Illness - General Chief Complaint: Pain, Acute Stated Complaint: ABD PAIN Time Seen by Provider: 06/16/19 08:53 - History of Present Illness Initial Comments: 06/16/19 10:16 38 years old past medical history significant for gastric sleeve 11/2017 hernia repair 10/2018 presents with recent CAT scan demonstrating an internal hernia Persistent pain moderate to severe in intensity no exacerbating alleviating factors. Sent by her surgeon for surgery today. Past History - Past Medical History Allergies/Adverse Reactions: Allergies Allergy/AdvReac Type Severity Reaction Status Date / Time No Known Allergies Allergy Verified 06/16/19 08:56 Home Medications: Ambulatory Orders NK [No Known Home Medication] 06/16/19 Anemia: No Asthma: No Cancer: No Cardiac Disorders: No CVA: No COPD: No CHF: No Dementia: No Diabetes: No GI Disorders: No Disorders: No HTN: No Hypercholesterolemia: No Liver Disease: No Seizures: No Thyroid Disease: No - Surgical History Abdominal Surgery: Yes (GASTRIC SLEEVE) Appendectomy: No Cardiac Surgery: No Cholecystectomy: No GI Surgery: (HERNIA REPAIR) Lung Surgery: No Neurologic Surgery: No Orthopedic Surgery: No - Psycho Social/Smoking Cessation Hx Smoking History: Never smoked Have you smoked in the past 12 months: No Hx Alcohol Use: Yes (OCASIONAL) Drug/Substance Use Hx: No Substance Use Type: None Hx Substance Use Treatment: No Review of Systems - Review of Systems Comments:: 06/16/19 10:18 ROS: A complete review of 10 out of 10 review of systems is taken and is negative apart from what is previously mentioned below and in the HPI. *Physical Exam - Vital Signs Last Vital Signs Temp Pulse Resp BP Pulse Ox 98.3 F 77 17 123/77 100 06/16/19 08:50 06/16/19 08:50 06/16/19 08:50 06/16/19 08:50 06/16/19 08:50 - Physical Exam 06/16/19 10:18 Vitals: Triage Vital signs reviewed General Appearance: No acute distress, well nourished well developed, Head: Atraumatic, Cardiac: Regular rate and rhythym, no murmurs, no rubs, no gallops, Lungs: Clear to auscultation bilateral, good air movement bilaterally, Abdomen: Soft, non distended, normal bowel sounds, umbilical tenderness to palpation no rebound no guarding Extremities: Full range of motion to all extremities, no cyanosis, clubbing, or edema Skin: Warm and dry, no rashes or lesions, no rash, no petechiae Psych: Normal mood, normal affect ED Treatment Course - ADDITIONAL ORDERS Additional order review: Laboratory Results 06/16/19 06/16/19 09:20 09:01 PT with INR 12.9 INR 1.16 PTT (Actin FS) 28.1 Urine HCG, Qual Negative Medical Decision Making - Medical Decision Making 06/16/19 10:18 Case discussed with patient surgeon plan for OR today We will admit to surgery for further management. Discharge - Discharge Information Problems reviewed: Yes Clinical Impression/Diagnosis: Internal hernia Condition: Stable - Admission Yes - Follow up/Referral Referrals: Malik Curtis MD [Primary Care Provider] - - Patient Discharge Instructions - Post Discharge Activity
--- NOTE | 2019-06-16 13:02 | HP ---
Admitting History and Physical - Primary Care Physician PCP: Malik Curtis P - Admission Chief Complaint: Abdominal Pain History Source: Patient Limitations to Obtaining History: No Limitations - Past Medical History Gastrointestinal: Yes: Other (Abdominal Pain above umbilicus) ...: No - Past Surgical History Past Surgical History: Yes: Bariatric Surgery (Gastric sleeve 11/2017), Hernia Repair (Ventral hernia repair 10/2018) - Smoking History Smoking history: Never smoked Have you smoked in the past 12 months: No - Alcohol/Substance Use Hx Alcohol Use: Yes (OCASIONAL) Home Medications - Allergies Allergies/Adverse Reactions: Allergies Allergy/AdvReac Type Severity Reaction Status Date / Time No Known Allergies Allergy Verified 06/16/19 08:56 - Home Medications Home Medications: Ambulatory Orders NK [No Known Home Medication] 06/16/19 Physical Examination Vital Signs: Vital Signs Temperature 98.3 F 06/16/19 08:50 Pulse Rate 77 06/16/19 08:50 Respiratory Rate 17 06/16/19 08:50 Blood Pressure 123/77 06/16/19 08:50 O2 Sat by Pulse Oximetry (%) 100 06/16/19 08:50
[2019-06-16] MEDS ORDERED: PROPOFOL 20 ML ONE ×2 (13:13)
[2019-06-16] MEDS ORDERED: SUCCINYLCHOLINE CHLORIDE 200 MG/10 ML SYRINGE ONE (13:13)
[2019-06-16] MEDS ORDERED: ROCURONIUM BROMIDE 50 MG/5 ML SYRINGE ONE (13:17)
[2019-06-16] MEDS ORDERED: ONDANSETRON 4 MG/2 ML VIAL ONE (13:18)
[2019-06-16] MEDS ORDERED: DEXAMETHASONE SOD PHOSPHATE 4 MG/1 ML VIAL ONE (13:18)
[2019-06-16] MEDS ORDERED: BUPIVACAINE HCL 0.25% 125 MG/50 ML VIAL ONE (13:25)
[2019-06-16] MEDS ORDERED: ceFAZolin SODIUM 1 GM VIAL ONE (13:25)
[2019-06-16] MEDS ORDERED: HYDROmorphone HCL/PF 1 MG/ML AMP ONE (13:31)
[2019-06-16] MEDS ORDERED: BUPIVACAINE HCL/PF 0.25% (2.5MG/ML) 10 ML VIAL IJ ONE (14:00)
[2019-06-16] MEDS ORDERED: NEOSTIGMINE METHYLSULFATE 0.5 MG/ML - 10 ML MDV ONE (14:09)
[2019-06-16] MEDS ORDERED: GLYCOPYRROLATE 0.2 MG/1 ML VIAL ONE (14:09)
[2019-06-16] MEDS ORDERED: ACETAMINOPHEN 325 MG TABLET (FP) PO PRN (14:28)
[2019-06-16] MEDS ORDERED: SODIUM CHLORIDE 1,000 ML IV SCH (14:30)
--- NOTE | 2019-06-16 14:34 | OP ---
Operative Note - Note: Operative Date: 06/16/19 Pre-Operative Diagnosis: Abdominal Pain. Recurrent incarcerated ventral hernia Operation: Laparoscopic Repair of recurrent incarcerated Ventral Hernia. Laparoscopic Lysis of Adhesions. Reduction of incarcerated contents. Placement of mesh. Diagnostic Laparoscopy Findings: 3.0 cm circular defect just above umbilicus in midline Incarcerated contents reduced Omentum dissected off wall of hernia Estimated Blood Loss (mls): 30 Operative Report Dictated: Yes
[2019-06-16] MEDS ORDERED: LACTATED RINGERS SOLUTION 1,000 ML IV SCH (15:00)
[2019-06-16] MEDS ORDERED: HYDROmorphone HCL 0.5 MG/0.5 ML SYRINGE ONE ×4 (15:05→16:07)
[2019-06-16] MEDS: HYDROmorphone HCL CARPU-JECT 1 MG/1 ML DISP.SYRIN IVPUSH PRN ×4 (15:08→16:05)
[2019-06-16 16:16] LABS: CALCIUM 8.8 mg/dl (8.5-10); CREATININE 0.8 mg/dl (0.55-1.3); POTASSIUM 4.3 mmol/L (3.5-5.1)
[2019-06-16 16:18] LABS: HEMATOCRIT 41.1 % (32.4-45.2); HEMOGLOBIN 13.2 GM/dl (10.7-15.3); MCH 34.3 pg (25.7-33.7); MCHC 32.1 g/dl (32.0-36.0); MEAN CELL VOLUME 106.9 fl (80-96); MEAN PLT VOLUME 8.4 fl (7.5-11.1); PLATELET COUNT 260 K/MM3 (134-434); RBC 3.85 M/mm3 (3.60-5.2); RDW 13.4 % (11.6-15.6); WHITE BLOOD COUNT 8.2 K/mm3 (4.0-10.8)
--- NOTE | 2019-06-16 17:16 | OP ---
DATE OF OPERATION: 06/16/2019 PREOPERATIVE DIAGNOSES: 1. Abdominal pain. 2. Recurrent, incarcerated ventral hernia. POSTOPERATIVE DIAGNOSES: 1. Abdominal pain. 2. Recurrent, incarcerated ventral hernia. 3. Abdominal adhesions. PROCEDURES PERFORMED: 1. Laparoscopic repair of recurrent, incarcerated ventral hernia. 2. Laparoscopic lysis of adhesions. 3. Reduction of incarcerated contents of hernia. 4. Placement of mesh over hernia. 5. Diagnostic laparoscopy. OPERATING SURGEON: Malik Curtis MD GENERAL LOT ATTENDANT: Stepan Turner MD ANESTHESIA: General. EXPECTED BLOOD LOSS: 30 mL. OPERATIVE PROCEDURE: The patient was brought into the operating room, placed on the OR table in a supine position. All precautions were taken initially including padding for the back, and Venodyne boots were placed on both lower extremities. At that point, the abdomen was prepped and draped in the usual manner. A Veress needle was placed in the left upper quadrant, and a pneumoperitoneum was established. Under direct vision with the , a laparoscopic camera was placed with a No. 5 trocar in the left upper quadrant and then through that trocar, laparoscopic camera was placed. Under direct vision, a No. 5 bladeless trocar was placed in the left lower quadrant and a No. 12 bladeless trocar was placed more laterally in the left upper quadrant. At this point, attention was directed to the hernia, which was in the midline. Because the patient was relaxed, the contents in the hernia were reduced, and that left just some scar tissue from the omentum stuck along the wall of the hernia sac. At that point, the omental contents was dissected off of the hernia sac wall, and they were reduced into the abdominal cavity. Attention was now directed to the rest of the hernia, which was approximately 3 cm in a circular direction. A composite mesh was then placed on the field, and it was rolled up and placed with a No. 12 trocar site. The suture placed into the mesh and that suture then was used to hold the mesh up to the anterior abdominal wall. The Donato-Frederick closure device was placed through the middle of the hernia, grabbed the suture of the mesh, and brought the mesh up to the abdominal wall. At that point, a tacking device was used to place the tacks in a circular direction around the mesh until a mesh was anchored to the anterior abdominal wall without any difficulty. At that point, the No. 12 trocar site was closed with the Donato-Frederick to prevent internal hernia and to prevent bleeding. Under direct vision, all trocars were removed through the abdominal cavity and the pneumoperitoneum released. All trocar sites then received 0.25% Marcaine were closed with 4-0 Biosyn in subcuticular fashion. Dressings were applied. The patient awoken from anesthesia and transferred out of the operating room to the recovery room in stable condition. Dasia [id number]
[2019-06-16] MEDS: HYDROmorphone HCL CARPU-JECT 1 MG/1 ML DISP.SYRIN IVPB PRN ×2 (18:27→22:38)
[2019-06-16] MEDS: FAMOTIDINE 20 MG/50 ML IVPB 20 MG/50 ML MG IVPB SCH (21:22)
[2019-06-16] MEDS: ONDANSETRON 4 MG/2 ML VIAL IVPUSH PRN (21:22)
[2019-06-17] MEDS: HYDROmorphone HCL CARPU-JECT 1 MG/1 ML DISP.SYRIN IVPB PRN ×3 (05:00→21:22)
--- NOTE | 2019-06-17 07:44 | PN ---
Progress Note (short form) - Note Progress Note: 38yo F s/p laproscopic incarcerated ventral hernia repair, POD 1. Pt states that she continues to have abd pain. Denies n/v, fever, chills. Pt states that she has been ambulating a little bit, but does not want to get out of bed due to pain. Pt tolerating diet and urinating well. Last Vital Signs Temp Pulse Resp BP Pulse Ox 98.4 F 60 18 134/80 100 06/17/19 05:00 06/17/19 05:00 06/17/19 05:00 06/17/19 05:00 06/17/19 05:00 CBC, BMP 06/16/19 15:15 06/16/19 15:15 PE: Gen: a&O X3 Resp: breathing comfortably Abd: soft, nondistended, mild diffuse tenderness, incisions are clean with no erythema or discharge. Ext: no edema Problem List - Problems (1) Incarcerated hernia Assessment/Plan: Plan -encouraged pt to get OOB/ambulate today as will improve pain -regular diet -hopefully plan to discharge home today -pain control Pt discussed with Dr. Curtis who agrees with plan Code(s): K46.0 - UNSP ABDOMINAL HERNIA WITH OBSTRUCTION, WITHOUT GANGRENE
[2019-06-17] MEDS: FAMOTIDINE 20 MG/50 ML IVPB 20 MG/50 ML MG IVPB SCH (09:25)
[2019-06-17] MEDS: ENOXAPARIN NA (PORCINE) 40 MG/0.4 ML DISP.SYRIN SQ SCH (09:25)
[2019-06-17] MEDS: oxyCODONE HCL 5 MG TABLET PO PRN (09:26)
--- NOTE | 2019-06-17 11:03 | EKG ---
Test Reason : Blood Pressure : / mmHG Vent. Rate : 068 BPM Atrial Rate : 068 BPM P-R Int : 158 ms QRS Dur : 082 ms QT Int : 378 ms P-R-T Axes : 050 055 040 degrees QTc Int : 401 ms NORMAL SINUS RHYTHM NORMAL ECG WHEN COMPARED WITH ECG OF 03-DEC-2018 08:50, NO SIGNIFICANT CHANGE WAS FOUND Confirmed by Stepan Donohue MD ([id number]) on 06/17/2019 11:02:27 AM Referred By: Confirmed By:Stepan Donohue MD
--- NOTE | 2019-06-17 11:25 | PN ---
Progress Note (short form) - Note Progress Note: 38F POD1 s/p lap repair ventral hernia with mesh under GA-ETT. Pt states that pain is well controlled and reports no anesthetic complications. AVSS. Continue current regimen.
--- NOTE | 2019-06-17 12:19 | PN ---
Progress Note (short form) - Note Progress Note: POD#1 Afebrile; VSS Pt with significant abdominal pain/discomfort Pain in area of trocar incisions and especially over midline hernia repair Tolerating PO diet No N/V Limited ambulation- states secondary to pain P/E- Abd- band-aids over incisions no drainage or leakage noted tender on mild palpation over total abdominal area Ext- no swelling or edema P- Encourage ambulation PT consult to assist with ambulation Abdominal binder Continue DVT prophylaxis- SCD's, Lovenox
[2019-06-17] MEDS: ONDANSETRON 4 MG/2 ML VIAL IVPUSH PRN (21:21)
[2019-06-17] MEDS ORDERED: FAMOTIDINE 20 MG TABLET PO SCH (22:00)
[2019-06-18] MEDS: ACETAMINOPHEN 1000 MG/100 ML VIAL (NON FORMULARY) IVPB SCH ×3 (08:00→19:34)
[2019-06-18] MEDS ORDERED: KETOROLAC TROMETHAMINE 30 MG/1 ML VIAL IVPUSH PRN (08:11)
--- NOTE | 2019-06-18 08:14 | PN ---
Progress Note (short form) - Note Progress Note: POD#2 Pt with vomiting up food particle severa times overnight. She complains of abd pain this am. Not passing flatus. Vital Signs Period Temp Pulse Resp BP Sys/Bazzi Pulse Ox Last 24 Hr 97.5 F-98.5 F 62-84 17-22 112-145/54-84 97-100 GEN: A&0x3, ABD: soft, slight distended. Inc tenderness. AXR: SB dilatation and a/f levels A/P: 38 yo female s/p lap ventral hernia repair with RISA Pt with vomiting, Npo/IV hydration IV tylenol and Toradol ordered for pain management, hold narcotics IV pepcid/IV hydration BMP today, pt with vomiting overnight. Monitor electrolytes D/w Dr. Curtis and CT scan with oral contrast ordered
[2019-06-18] MEDS: DEXTROSE 5%-NORMAL SALINE 1,000 ML IV SCH (08:15)
--- NOTE | 2019-06-18 08:16 | PN ---
Progress Note, Physician Chief Complaint: AWAKE ALERT VOMITED MULTIPLE TIMES CLEAR FLUIDS OVERNIGHT C/O ABD PAIN NO FEVER OR CHILLS C/O SHORTNESS OF BREATH - Current Medication List Current Medications: Active Medications Acetaminophen (Tylenol -) 325 mg PO Q4H PRN PRN Reason: HEADACHE Acetaminophen (Ofirmev Injection -) 1,000 mg IVPB Q6H [facility] Stop: 06/19/19 01:46 Enoxaparin Sodium (Lovenox -) 40 mg SQ DAILY [facility] Last Admin: 06/17/19 09:25 Dose: 40 mg Documented by: Hydromorphone HCl (Dilaudid Injection -) 1 mg IVPB Q3H PRN PRN Reason: PAIN LEVEL 6-10 Last Admin: 06/17/19 21:22 Dose: 1 mg Documented by: Famotidine/Sodium Chloride (Pepcid 20 Mg Premixed Ivpb -) 20 mg in 50 mls @ 100 mls/hr IVPB BID [facility] Ketorolac Tromethamine (Toradol Injection -) 30 mg IVPUSH Q6H PRN PRN Reason: PAIN LEVEL 6-10 Stop: 06/23/19 08:10 Ondansetron HCl (Zofran Injection) 4 mg IVPUSH Q4H PRN PRN Reason: NAUSEA AND/OR VOMITING Last Admin: 06/17/19 21:21 Dose: 4 mg Documented by: Oxycodone HCl (Roxicodone -) 5 mg PO Q4H PRN PRN Reason: PAIN LEVEL 1-5 Last Admin: 06/17/19 09:26 Dose: 5 mg Documented by: - Objective Vital Signs: Vital Signs Temperature 98.3 F 06/18/19 05:00 Pulse Rate 84 06/18/19 05:00 Respiratory Rate 19 06/18/19 05:00 Blood Pressure 145/84 06/18/19 05:00 O2 Sat by Pulse Oximetry (%) 100 06/18/19 05:00 Constitutional: Yes: Moderate Distress Cardiovascular: Yes: Regular Rate and Rhythm Respiratory: Yes: CTA Bilaterally Gastrointestinal: Yes: Soft, Abdomen, Obese, Tenderness Genitourinary: Yes: WNL Neurological: Yes: WNL Labs: CBC, BMP 06/16/19 15:15 06/16/19 15:15 INR, PTT INR 1.16 (0.82-1.09) 06/16/19 09:01 Assessment/Plan POD#2 SLEEVE GASTRECTOMY N/V WITH ABDOMINAL XRAY SHWING SBO KEEP NPO IVF STARTED REGLAN/ZOFRAN PRN TORADOL AND TYLENOL FOR PAIN CONTROL STOP ALL OPIODS OOB TO CHAIR DVT PROPHYLAXIS CHECK LABS, EKG, CARDIAC ENZYMES
[2019-06-18] MEDS ORDERED: PROMETHAZINE HCL 25 MG/1 ML VIAL IVPB ONE (09:15)
[2019-06-18 09:47] LABS: CALCIUM 9.4 mg/dl (8.5-10); POTASSIUM 4.4 mmol/L (3.5-5.1)
[2019-06-18] MEDS: ENOXAPARIN NA (PORCINE) 40 MG/0.4 ML DISP.SYRIN SQ SCH (10:00)
[2019-06-18 10:01] LABS: MEAN PLT VOLUME 8.3 fl (7.5-11.1)
[2019-06-18 10:06] LABS: HEMATOCRIT 40.6 % (32.4-45.2); HEMOGLOBIN 13.5 GM/dl (10.7-15.3); MCH 35.5 pg (25.7-33.7); MCHC 33.3 g/dl (32.0-36.0); MEAN CELL VOLUME 106.6 fl (80-96); PLATELET COUNT 323 K/MM3 (134-434); RBC 3.81 M/mm3 (3.60-5.2); RDW 13.3 % (11.6-15.6); WHITE BLOOD COUNT 8.8 K/mm3 (4.0-10.8)
[2019-06-18] MEDS: FAMOTIDINE 20 MG/50 ML IVPB 20 MG/50 ML MG IVPB SCH ×2 (10:15→21:28)
[2019-06-18 10:43] LABS: ALBUMIN 3.8 g/dl (3.4-5.0); ALK PHOS 64 U/L (45-117); ANION GAP 10 MMOL/L (8-16); BILIRUBIN,TOTAL 1.1 mg/dl (0.2-1); CALCIUM 9.3 mg/dl (8.5-10); CHLORIDE 100 mmol/L (98-107); CO2 25 mmol/L (21-32); GLUCOSE,RANDOM 112 mg/dl (74-106); MAGNESIUM 1.9 mg/dL (1.8-2.4); POTASSIUM 4.2 mmol/L (3.5-5.1); SGOT/AST 16 U/L (15-37); SGPT/ALT 15 U/L (13-61); SODIUM 135 mmol/L (136-145); TOT PROT 7.5 g/dl (6.4-8.2)
[2019-06-19] MEDS: ACETAMINOPHEN 1000 MG/100 ML VIAL (NON FORMULARY) IVPB SCH (01:54)
[2019-06-19] MEDS: oxyCODONE HCL 5 MG TABLET PO PRN (09:08)
[2019-06-19] MEDS: DEXTROSE 5%-NORMAL SALINE 1,000 ML IV SCH (09:09)
[2019-06-19] MEDS: ENOXAPARIN NA (PORCINE) 40 MG/0.4 ML DISP.SYRIN SQ SCH (09:09)
[2019-06-19] MEDS: FAMOTIDINE 20 MG/50 ML IVPB 20 MG/50 ML MG IVPB SCH ×2 (09:10→21:30)
--- NOTE | 2019-06-19 09:49 | PN ---
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 Laparoscopic Lysis of Adhesions. Reduction of incarcerated contents. Patient now with suspected post op ileus. She is still having abdominal pain but she has been drinking soda despite being NPO Since yesterday and is now passing gas. She denies any CP, SOB, N/V fever or chills. Vital Signs Temp 97.9 F 06/19/19 09:33 Pulse 71 06/19/19 09:33 Resp 18 06/19/19 09:33 BP 114/72 06/19/19 09:33 Pulse Ox 100 06/19/19 09:33 Intake & Output 06/18/19 06/18/19 06/19/19 11:59 23:59 11:59 Intake Total 400 0 600 Balance 400 0 600 Intake: IV 500 D5-Ns - 1,000 ml @ 83 mls 500 /hr IV ASDIR ROSARIO Rx#: [id number] IVPB 100 Oral 400 0 0 Other: Voiding Method Toilet Toilet Toilet # Unmeasured Voids Void 1 Bowel Movement No CBC, BMP 03 08:15 06/18/19 08:15 PE: A&Ox3, NAD Unlabored resp on RA ABD: obese, soft, ND with focal TTP at epigastric incision and general TTP throughout appropriate to status. Dressing c/d/i with surrounding tissue intact and no evidence of tracking erythema, collection or active d/c B/L LE compartments soft, supple and non-tender with +DP pulses. Abdominal CT 06/18/19: Mild dilation of small and large bowel loops suggesting post op ileus. no evidence of bowel obstruction. Problem List - Problems (1) Postoperative ileus Assessment/Plan: POD #3 hernia repair with mesh, with post op ileus which appears to he improving. -start clears -Encourage ambulation -encourage IS -Ofiermev for pain Evaluation and plan discussed with Dr Curtis Code(s): K91.89 - OTH POSTPROCEDURAL COMPLICATIONS AND DISORDERS OF DGSTV SYS; K56.7 - ILEUS, UNSPECIFIED
[2019-06-19] MEDS ORDERED: ACETAMINOPHEN 1000 MG/100 ML VIAL (NON FORMULARY) IVPB PRN (09:54)
[2019-06-19] MEDS ORDERED: KETOROLAC TROMETHAMINE 30 MG/1 ML VIAL IVPUSH PRN (14:30)
--- NOTE | 2019-06-19 14:30 | PN ---
Progress Note (short form) - Note Progress Note: POD#3 Afebrile; VSS Pt doing better Less abdominal discomfort + flatus Ambulating better- abdominal binder in place No N/V P/E- Abd- all incisions clean, dry no drainage Ext- no swelling, no edema WBC-8.8 H/H-13.5/40.6 CT scan (06/17)- + ileus pattern P- PO soft diet as tolerated Continue ambulation Continue DVT prophylaxis( SCD's, lovenox)
--- NOTE | 2019-06-20 06:42 | DS ---
Physical Exam: SUBJECTIVE: Patient seen and examined. Doing Well. Ambulating. Voiding/stooling spontaneously. Tolerating soft diet. Denies n/v/f/c, CP, palpitations or SOB OBJECTIVE: Last Vital Signs Temp Pulse Resp BP Pulse Ox 98.6 F 83 18 115/60 98 06/19/19 22:00 06/19/19 22:00 06/19/19 22:00 06/19/19 22:00 06/19/19 22:00 PE GEN: a&o. nad HEAD: nc. at. EYES: PERRL, extraocular movements intact, sclera anicteric, conjunctiva clear. NECK: Trachea midline, full range of motion, supple. LUNGS: cta bilat HEART: rrr ABD: Soft, nt, nd, dressing c/d/i. normoactive bs in all quadrants LE: 2+ pulses, warm, well-perfused, no edema. NEUROLOGICAL: Cranial nerves II through XII grossly intact. Normal speech, gait not observed. PSYCH: Normal mood, normal affect. SKIN: Warm, dry, normal turgor, no rashes or lesions noted. LABS CBC,CMP WBC 8.8 K/mm3 (4.0-10.8) 06/18/19 08:15 RBC 3.81 M/mm3 (3.60-5.2) 06/18/19 08:15 Hgb 13.5 GM/dl (10.7-15.3) 06/18/19 08:15 Hct 40.6 % (32.4-45.2) 06/18/19 08:15 MCV 106.6 fl (80-96) H 06/18/19 08:15 MCH 35.5 pg (25.7-33.7) H 06/18/19 08:15 MCHC 33.3 g/dl (32.0-36.0) 06/18/19 08:15 RDW 13.3 % (11.6-15.6) 06/18/19 08:15 Plt Count 323 K/MM3 (134-434) 06/18/19 08:15 MPV 8.3 fl (7.5-11.1) 06/18/19 08:15 Sodium 135 mmol/L (136-145) L 06/18/19 08:15 Sodium 135 mmol/L (136-145) L 06/18/19 08:15 Potassium 4.2 mmol/L (3.5-5.1) 06/18/19 08:15 Potassium 4.4 mmol/L (3.5-5.1) 06/18/19 08:15 Chloride 100 mmol/L (98-107) 06/18/19 08:15 Chloride 101 mmol/L (98-107) 06/18/19 08:15 Carbon Dioxide 25 mmol/L (21-32) 06/18/19 08:15 Carbon Dioxide 26 mmol/L (21-32) 06/18/19 08:15 Anion Gap 8 MMOL/L (8-16) 06/18/19 08:15 Anion Gap 10 MMOL/L (8-16) 06/18/19 08:15 BUN 16.0 mg/dl (7-18) 06/18/19 08:15 BUN 17.0 mg/dl (7-18) 06/18/19 08:15 Creatinine 1.0 mg/dl (0.55-1.3) 06/18/19 08:15 Creatinine 1.0 mg/dl (0.55-1.3) 06/18/19 08:15 Est GFR (CKD-EPI)AfAm 82.76 06/18/19 08:15 Est GFR (CKD-EPI)AfAm 82.76 06/18/19 08:15 Est GFR (CKD-EPI)NonAf 71.41 06/18/19 08:15 Est GFR (CKD-EPI)NonAf 71.41 06/18/19 08:15 Random Glucose 112 mg/dl (74-106) H 06/18/19 08:15 Random Glucose 116 mg/dl (74-106) H 06/18/19 08:15 Calcium 9.3 mg/dl (8.5-10) 06/18/19 08:15 Calcium 9.4 mg/dl (8.5-10) 06/18/19 08:15 Magnesium 1.9 mg/dL (1.8-2.4) 06/18/19 08:15 Total Bilirubin 1.1 mg/dl (0.2-1) H 06/18/19 08:15 AST 16 U/L (15-37) 06/18/19 08:15 ALT 15 U/L (13-61) 06/18/19 08:15 Alkaline Phosphatase 64 U/L (45-117) 06/18/19 08:15 Creatine Kinase 92 U/L (26-192) 06/18/19 15:08 Troponin I < 0.03 ng/ml (0.00-0.05) 06/18/19 15:08 Total Protein 7.5 g/dl (6.4-8.2) 06/18/19 08:15 Albumin 3.8 g/dl (3.4-5.0) 06/18/19 08:15 HOSPITAL COURSE: Date of Admission:06/17/19 Date of Discharge: 06/20/19 38 years old female admitted to [facility] secondary to abd pain. PSHx significant for gastric sleeve. A CT of her abd identified an internal hernia. She was taken to the OR for a Laparoscopic repair of recurrent incarcerated Ventral Hernia. Laparoscopic Lysis of Adhesions. Reduction of incarcerated contents. The day of surgery, the patient ambulated the hallways with assistance. Narcotic and non-narcotic pain management control was achieved with oral and IV pain control. GI prophylaxis. DVT prophylaxis was achieved with SCDs and early ambulation. Started on clear diet and advanced thru the stages to regular diet --> tolerated. The discharge instructions and an oral pain management plan were reviewed with the patient. All questions answered. Above plan discussed with Dr. Curtis and agreed. Minutes to complete discharge: 35 Visit type - Case Type Case Type: ED Admission - New patient This patient is new to me today: Yes Date on this admission: 06/20/19
[2019-06-20 07:05] VITALS: BP 116/64; PULSE 80; TEMP 98
[2019-06-20] MEDS: ENOXAPARIN NA (PORCINE) 40 MG/0.4 ML DISP.SYRIN SQ SCH (09:55)
[2019-06-20] MEDS: FAMOTIDINE 20 MG/50 ML IVPB 20 MG/50 ML MG IVPB SCH (09:56)
[2019-06-20] MEDS: DEXTROSE 5%-NORMAL SALINE 1,000 ML IV SCH (09:56)
--- NOTE | 2019-06-20 10:25 | PN ---
Progress Note, Physician Chief Complaint: AWAKE ALERT FEELS GOOD TOLERATING MEALS - Current Medication List Current Medications: Active Medications Acetaminophen (Tylenol -) 325 mg PO Q4H PRN PRN Reason: HEADACHE Enoxaparin Sodium (Lovenox -) 40 mg SQ DAILY [facility] Last Admin: 06/20/19 09:55 Dose: Not Given Documented by: Famotidine/Sodium Chloride (Pepcid 20 Mg Premixed Ivpb -) 20 mg in 50 mls @ 100 mls/hr IVPB BID [facility] Last Admin: 06/20/19 09:56 Dose: 100 mls/hr Documented by: Dextrose/Sodium Chloride (D5-Ns -) 1,000 mls @ 83 mls/hr IV ASDIR [facility] Last Admin: 06/20/19 09:56 Dose: 83 mls/hr Documented by: Ketorolac Tromethamine (Toradol Injection -) 30 mg IVPUSH Q8H-IV PRN PRN Reason: PAIN LEVEL 1-5 Stop: 06/24/19 17:59 Ondansetron HCl (Zofran Injection) 4 mg IVPUSH Q4H PRN PRN Reason: NAUSEA AND/OR VOMITING Last Admin: 06/17/19 21:21 Dose: 4 mg Documented by: - Objective Vital Signs: Vital Signs Temperature 98 F 06/20/19 06:00 Pulse Rate 80 06/20/19 06:00 Respiratory Rate 18 06/20/19 06:00 Blood Pressure 116/64 06/20/19 06:00 O2 Sat by Pulse Oximetry (%) 98 06/20/19 08:51 Constitutional: Yes: No Distress Cardiovascular: Yes: Regular Rate and Rhythm Respiratory: Yes: CTA Bilaterally Gastrointestinal: Yes: Normal Bowel Sounds, Soft Musculoskeletal: Yes: WNL Extremities: Yes: WNL Edema: No Integumentary: Yes: WNL Wound/Incision: Yes: Clean/Dry Neurological: Yes: WNL ...Motor Strength: WNL Psychiatric: Yes: WNL Labs: CBC, BMP 06/18/19 08:15 06/18/19 08:15 INR, PTT INR 1.16 (0.82-1.09) 06/16/19 09:01 Problem List - Problems (1) S/P laparoscopic sleeve gastrectomy Code(s): Z98.84 - BARIATRIC SURGERY STATUS (2) Postoperative ileus Code(s): K91.89 - OTH POSTPROCEDURAL COMPLICATIONS AND DISORDERS OF DGSTV SYS; K56.7 - ILEUS, UNSPECIFIED Assessment/Plan TOLERATING MEALS NO ACUTE DISTRESS LABS REVIEWED WNL I SPOKE WITH HER PMD KAMALA FISHER TO F/U SUNDAY FOR LABS
--- NOTE | 2019-06-20 10:25 | PN ---
Progress Note, Physician Chief Complaint: FEELING BETTER VOMITING SUBSIDED NAUSEA LESS - Current Medication List Current Medications: Active Medications Acetaminophen (Tylenol -) 325 mg PO Q4H PRN PRN Reason: HEADACHE Enoxaparin Sodium (Lovenox -) 40 mg SQ DAILY [facility] Last Admin: 06/20/19 09:55 Dose: Not Given Documented by: Famotidine/Sodium Chloride (Pepcid 20 Mg Premixed Ivpb -) 20 mg in 50 mls @ 100 mls/hr IVPB BID [facility] Last Admin: 06/20/19 09:56 Dose: 100 mls/hr Documented by: Dextrose/Sodium Chloride (D5-Ns -) 1,000 mls @ 83 mls/hr IV ASDIR [facility] Last Admin: 06/20/19 09:56 Dose: 83 mls/hr Documented by: Ketorolac Tromethamine (Toradol Injection -) 30 mg IVPUSH Q8H-IV PRN PRN Reason: PAIN LEVEL 1-5 Stop: 06/24/19 17:59 Ondansetron HCl (Zofran Injection) 4 mg IVPUSH Q4H PRN PRN Reason: NAUSEA AND/OR VOMITING Last Admin: 06/17/19 21:21 Dose: 4 mg Documented by: - Objective Vital Signs: Vital Signs Temperature 98 F 06/20/19 06:00 Pulse Rate 80 06/20/19 06:00 Respiratory Rate 18 06/20/19 06:00 Blood Pressure 116/64 06/20/19 06:00 O2 Sat by Pulse Oximetry (%) 98 06/20/19 08:51 Constitutional: Yes: Mild Distress Cardiovascular: Yes: Regular Rate and Rhythm Respiratory: Yes: WNL Gastrointestinal: Yes: Soft Genitourinary: Yes: WNL Musculoskeletal: Yes: WNL Labs: CBC, BMP 06/18/19 08:15 06/18/19 08:15 INR, PTT INR 1.16 (0.82-1.09) 06/16/19 09:01 Problem List - Problems (1) S/P laparoscopic sleeve gastrectomy Code(s): Z98.84 - BARIATRIC SURGERY STATUS (2) Postoperative ileus Code(s): K91.89 - OTH POSTPROCEDURAL COMPLICATIONS AND DISORDERS OF DGSTV SYS; K56.7 - ILEUS, UNSPECIFIED Assessment/Plan ADVANCE DIET SBO RESOLVING SURGERY F/U DC IVF LABS REVIEWED OOB TO CHAIR PT EVAL DVT PROPHYLAXIS
--- NOTE | 2019-06-20 13:58 | PN ---
Progress Note (short form) - Note Progress Note: POD#4 Afebrile; VSS Pt OOB sitting in chair Tolerating PO diet + flatus P/E- Abd-all incisions well-healed no cellulitis, no drainage Ext- no swelling or edema P- Will D/C home Continue ambulation at home PO soft diet, advance to regular slowly over 2-3 days F/U in 2 weeks
== END 2019-06-20 14:23 | disposition home or self-care (01) | DRG 336 ==
LOC: FER 08:50 → FASUSAT 09:53 → FM/S 09:53 → FASUSAT 10:21 → FM/S 16:44
PROVIDERS: ADMIT Surgery; ATTEND Surgery
PROC: 0DNW4ZZ Release Peritoneum, Percutaneous Endoscopic Approach (ICD-10-PCS; 2019-06-16)
PROC: 0WUF4JZ Supplement Abdominal Wall with Synthetic Substitute, Percutaneous Endoscopic Approach (ICD-10-PCS; principal; 2019-06-16 13:33)
DX: K43.6 Other and unspecified ventral hernia with obstruction, without gangrene (principal); K91.89 Other postprocedural complications and disorders of digestive system; K56.7 Ileus, unspecified; K66.0 Peritoneal adhesions (postprocedural) (postinfection); Y83.9 Surgical procedure, unspecified as the cause of abnormal reaction of the patient, or of later complication, without mention of misadventure at the time of the procedure
CPT/HCPCS: 36415; 74019-TC-FY; 74177-TC; 80048; 80053; 82550; 83735; 84484; 84703; 85027; 85610; 85730; 86850; 86900; 86901; 93005; 94760; 97116-GP; 97161-GP; 99285-25; J0131; Q9967

== ENCOUNTER 2022-10-14 20:39 | Emergency (ER) | payer OTHER ==
[2022-10-14 20:47] VITALS: BP 146/85; PULSE 98; RESP 18; TEMP 98.4; BMI 34.8
[2022-10-14] MEDS ORDERED: ALBUTEROL SO4 2.5/IPRATROPIUM 0.5 INH SOL 3 ML VIAL.NEB. NEB ONE ×2 (21:48→21:53)
[2022-10-14] MEDS ORDERED: KETOROLAC TROMETHAMINE 30 MG/1 ML VIAL IM ONE (21:48)
[2022-10-14] MEDS ORDERED: KETOROLAC TROMETHAMINE 30 MG/1 ML VIAL ONE (21:53)
== END 2022-10-14 22:42 | disposition home or self-care (01) ==
LOC: JER 20:39
PROC: 3E0F7GC Introduction of Other Therapeutic Substance into Respiratory Tract, Via Natural or Artificial Opening (ICD-10-PCS; principal; 2022-10-14)
PROC: 3E0233Z Introduction of Anti-inflammatory into Muscle, Percutaneous Approach (ICD-10-PCS; 2022-10-14)
DX: J06.9 Acute upper respiratory infection, unspecified (principal); R50.9 Fever, unspecified; M79.10 Myalgia, unspecified site; R05.9 Cough, unspecified; R19.7 Diarrhea, unspecified; R09.81 Nasal congestion; Z20.822 Contact with and (suspected) exposure to COVID-19
CPT/HCPCS: 0241U-QW; 99284-25

== ENCOUNTER 2023-04-17 21:54 | Emergency (ER) | payer OTHER ==
[2023-04-17 21:58] VITALS: BP 117/76; PULSE 104; RESP 18; TEMP 98.3; BMI 42.7
[2023-04-17] MEDS ORDERED: FAMOTIDINE 20 MG/50 ML IVPB 20 MG/50 ML MG IVPB ONE ×2 (22:42→23:19)
[2023-04-17] MEDS ORDERED: SODIUM CHLORIDE 0.9% 500 ML INFUS.BAG IV ONE (22:42)
[2023-04-17] MEDS ORDERED: ONDANSETRON 4 MG/2 ML VIAL IVPUSH ONE (22:42)
[2023-04-17] MEDS ORDERED: ACETAMINOPHEN 1000 MG/100 ML BAG IVPB ONE (22:42)
[2023-04-17] MEDS ORDERED: ACETAMINOPHEN INJECTION 100 ML IVPB ONE (23:19)
[2023-04-17] MEDS ORDERED: ONDANSETRON 4 MG/2 ML VIAL ONE (23:19)
[2023-04-17 23:37] LABS: BASO % 0.7 % (0-2.0); EOS % 0.5 % (0-4.5); HEMATOCRIT 36.6 % (32.4-45.2); HEMOGLOBIN 12.1 GM/dL (10.7-15.3); LYMPH % 14.3 % (8-40); MCH 33.7 pg (25.7-33.7); MCHC 33.1 g/dl (32.0-36.0); MEAN CELL VOLUME 101.8 fl (80-96); MEAN PLT VOLUME 7.4 fl (7.5-11.1); MONO % 6.9 % (3.8-10.2); NEUT % 77.6 % (42.8-82.8); PLATELET COUNT 311 10^3/uL (134-434); RBC 3.59 M/mm3 (3.60-5.2); RDW 14.2 % (11.6-15.6); WHITE BLOOD COUNT 9.5 K/mm3 (4.0-10.0)
[2023-04-17 23:44] LABS: PH,URINE 6.5 (5.0-8.0); URINE APPEARANCE CLEAR; URINE BILIRUBIN NEGATIVE (NEGATIVE); URINE COLOR YELLOW; URINE GLUCOSE (UA) NEGATIVE (NEGATIVE); URINE KETONE 3+ (NEGATIVE); URINE LEUK ESTERASE NEGATIVE (NEGATIVE); URINE NITRITE NEGATIVE (NEGATIVE); URINE PROTEIN TRACE (NEGATIVE)
[2023-04-18 00:01] LABS: POTASSIUM 4.3 mmol/L (3.5-5.1)
[2023-04-18 00:03] LABS: ALBUMIN 3.2 g/dl (3.4-5.0); CALCIUM 9.6 mg/dL (8.5-10.1)
[2023-04-18 00:04] LABS: BLOOD UREA NITROGEN 13.6 mg/dL (7-18); MAGNESIUM 1.8 mg/dL (1.8-2.4)
[2023-04-18 00:06] LABS: CREATININE 0.8 mg/dL (0.55-1.3)
[2023-04-18 00:08] LABS: BILIRUBIN,TOTAL 0.5 mg/dL (0.2-1); TOT PROT 7.6 g/dl (6.4-8.2)
[2023-04-18] MEDS ORDERED: METOCLOPRAMIDE HCL INJECTION 10 MG/2 ML VIAL IVPUSH ONE (02:27)
[2023-04-18] MEDS ORDERED: METOCLOPRAMIDE HCL INJECTION 10 MG/2 ML VIAL ONE (02:28)
== END 2023-04-18 05:19 | disposition home or self-care (01) ==
LOC: JER 21:54
PROC: 3E033GC Introduction of Other Therapeutic Substance into Peripheral Vein, Percutaneous Approach (ICD-10-PCS; principal; 2023-04-17)
PROC: 3E033GC Introduction of Other Therapeutic Substance into Peripheral Vein, Percutaneous Approach (ICD-10-PCS; 2023-04-17)
PROC: 3E033GC Introduction of Other Therapeutic Substance into Peripheral Vein, Percutaneous Approach (ICD-10-PCS; 2023-04-17)
PROC: 3E033NZ Introduction of Analgesics, Hypnotics, Sedatives into Peripheral Vein, Percutaneous Approach (ICD-10-PCS; 2023-04-17)
DX: R11.2 Nausea with vomiting, unspecified (principal); Z20.822 Contact with and (suspected) exposure to COVID-19
CPT/HCPCS: 0241U-QW; 36415; 74177-TC; 76705-TC; 80053; 81003; 83690; 83735; 84484; 84703; 85025; 87086; 93005; 93010; 99285-25

== ENCOUNTER 2023-11-15 17:13 | Emergency (ER) | payer OTHER ==
[2023-11-15 17:26] VITALS: BP 124/72; PULSE 83; RESP 16; TEMP 98.5; BMI 44.1
[2023-11-15] MEDS ORDERED: KETOROLAC TROMETHAMINE 30 MG/1 ML VIAL ONE (18:19)
[2023-11-15] MEDS ORDERED: CYCLOBENZAPRINE HCL 10 MG TABLET (FP) ONE (18:19)
[2023-11-15] MEDS ORDERED: ACETAMINOPHEN 500 MG TABLET (FP) ONE (18:19)
[2023-11-15] MEDS ORDERED: LIDOCAINE 4% PATCH TP ONE (18:19)
[2023-11-15] MEDS: KETOROLAC TROMETHAMINE 30 MG/1 ML VIAL IM ONE (18:29)
[2023-11-15] MEDS: LIDOCAINE 4% PATCH TP ONE (18:29)
[2023-11-15] MEDS: CYCLOBENZAPRINE HCL 10 MG TABLET (FP) PO ONE (18:29)
[2023-11-15] MEDS: ACETAMINOPHEN 500 MG TABLET (FP) PO ONE (18:30)
[2023-11-15] MEDS ORDERED: LIDOCAINE PATCH REMOVAL MC SCH (22:00)
== END 2023-11-15 19:38 | disposition home or self-care (01) ==
LOC: JER 17:13 → JERFT 17:13
PROC: 3E0133Z Introduction of Anti-inflammatory into Subcutaneous Tissue, Percutaneous Approach (ICD-10-PCS; principal; 2023-11-15)
DX: M25.511 Pain in right shoulder (principal); R07.81 Pleurodynia; M25.551 Pain in right hip; M25.561 Pain in right knee; M25.571 Pain in right ankle and joints of right foot; W01.0XXA Fall on same level from slipping, tripping and stumbling without subsequent striking against object, initial encounter
CPT/HCPCS: 71101-TC-RT-FY; 72100-TC-FY; 73502-TC-RT-FY; 73560-TC-RT-FY; 73610-TC-RT-FY; 99284-25